=== PATIENT | female | born 1950 | race Caucasian/White ===

== ENCOUNTER 2019-07-23 10:14 | Outpatient (CLI) | payer MEDICARE, OTHER, SELFPAY ==
[2019-07-23 11:04] LABS: Thyroid Stimulating Hormone 1.49 uIU/mL (0.27-4.20)
== END 2019-07-23 10:15 | disposition home or self-care (01) ==
LOC: LAB 10:18
PROVIDERS: Family Provider Family Medicine; PCP Family Medicine; Visit Provider Family Medicine
DX: E03.9 Hypothyroidism, unspecified (principal)
CPT/HCPCS: 36415; 84443

== ENCOUNTER 2019-08-07 06:52 | Outpatient (REF) | payer MEDICARE, OTHER, SELFPAY ==
[2019-08-07 10:14] LABS: Estmated Average Glucose 126
[2019-08-07 11:34] LABS: Cholesterol 252 mg/dL (0-200); Glucose 92 mg/dL (65-115); HDL Cholesterol 56 mg/dL (60-100); LDL Cholesterol Calculated 153 mg/dL (50-129); LDL HDL Ratio 2.73 RATIO (0.00-3.22); Triglycerides 215 mg/dL (0-150)
== END 2019-08-07 06:53 | disposition home or self-care (01) ==
LOC: LAB 06:52
PROVIDERS: Family Provider Family Medicine; PCP Family Medicine; Visit Provider Dermatology
DX: Z01.89 Encounter for other specified special examinations (principal)
CPT/HCPCS: 80061; 82947; 83036

== ENCOUNTER → 2020-09-20 08:37 | Outpatient (BNVA) | payer SELFPAY | PROVIDERS: Family Provider Family Medicine; PCP Family Medicine; Visit Provider Dermatology | DX: Z01.89 Encounter for other specified special examinations (principal) | CPT/HCPCS: 85025 ==

== ENCOUNTER → 2021-07-05 16:14 | Outpatient (BNVA) | payer OTHER, SELFPAY | PROVIDERS: Family Provider Family Medicine; PCP Family Medicine; Visit Provider Nurse Practitioner Family | DX: Z20.822 Contact with and (suspected) exposure to COVID-19 (principal) | CPT/HCPCS: 87635 ==

== ENCOUNTER → 2021-09-12 08:33 | Outpatient (BNVA) | payer SELFPAY | PROVIDERS: Family Provider Family Medicine; PCP Family Medicine; Visit Provider Dermatology | DX: Z01.89 Encounter for other specified special examinations (principal) ==

== ENCOUNTER 2021-10-24 09:44 | Outpatient (CLI) | payer MEDICARE, OTHER, SELFPAY ==
[2021-10-24 11:26] LABS: Thyroid Stimulating Hormone 1.55 uIU/mL (0.27-4.20)
== END 2021-10-24 09:45 | disposition home or self-care (01) ==
LOC: LAB 09:57
PROVIDERS: PCP Family Medicine; Visit Provider Family Medicine
DX: E03.9 Hypothyroidism, unspecified (principal)
CPT/HCPCS: 36415; 84443

== ENCOUNTER → 2022-09-11 08:59 | Outpatient (BNVA) | payer SELFPAY | PROVIDERS: PCP Family Medicine; Visit Provider Dermatology | DX: Z01.89 Encounter for other specified special examinations (principal); Z13.6 Encounter for screening for cardiovascular disorders ==

== ENCOUNTER 2023-11-27 13:53 | Outpatient (CLI) | payer MEDICARE, OTHER, SELFPAY ==
--- NOTE | 2023-11-27 14:16 | XR_ITS ---
WS: [id number] SCREENING DEXA SCAN BAC ON TRAC CLINICAL INFORMATION: SCREENING FOR OSTEOPOROSIS COMPARISON: 2019 FINDINGS: The L1-L4 bone mineral density measures 1.023 g/cm2. This corresponds to a T score score of -1.3 and Z score of 0.5. Left femoral neck bone mineral density measures 0.787 g/cm2. This corresponds to a T score of -1.8 an d Z score of -0.2. Right femoral neck bone mineral density measures 0.858 g/cm2. This corresponds to a T score -1.2of an d Z score of 0.4. Mean femoral neck bone mineral density measures 0.823 g/cm2. This corresponds to a T score of -1.5 an d Z score of 0.1. XR/XR DEXA axial skeleton* [id number] IMPRESSION: Osteopenia lumbar spine. Osteopenia femoral necks. Patient's FRAX calculated 10 year probability for major osteoporotic fracture i s 16.3% and osteoporotic hip fracture is 2.9%.
== END 2023-11-27 13:54 | disposition home or self-care (01) ==
LOC: RAD 13:57
PROVIDERS: PCP Family Medicine; Visit Provider Family Medicine
DX: Z13.820 Encounter for screening for osteoporosis (principal); M85.80 Other specified disorders of bone density and structure, unspecified site
CPT/HCPCS: 77080

== ENCOUNTER → 2024-08-28 10:27 | Outpatient (BNVA) | payer SELFPAY | PROVIDERS: PCP Dermatology; Visit Provider Dermatology | DX: Z13.6 Encounter for screening for cardiovascular disorders (principal) | CPT/HCPCS: 80061; 82947; 83036 ==